=== PATIENT | male | born 1960 | race Caucasian/White ===

== ENCOUNTER 2024-03-15 04:59 | Inpatient (IN) | payer OTHER, SELFPAY ==
[2024-03-09 08:35] VITALS: BMI 34.3
[2024-03-09 09:40] LABS: Urine Albumin Trace (Neg - Trace); Urine Bilirubin Negative (Negative); Urine Character Clear (Clear); Urine Color Yellow; Urine Glucose Negative (Negative); Urine Ketone Negative (Negative); Urine Leukocyte Negative (Negative); Urine Nitrite Negative (Negative); Urine Occult Blood Negative (Negative); Urine Urobilinogen Negative (Neg - 1+)
[2024-03-09 09:50] LABS: INR 0.93; PT 12.4 Sec (11.4-14.6)
[2024-03-09 09:51] LABS: APTT 29.1 Sec (23.4-35.0)
[2024-03-09 10:06] LABS: % Basophils 1.1 % (0-2); % Eosinophils 4.4 % (0-6); % Immature Granulocytes 0.2 % (0-0.5); % Lymphocytes 27.9 % (20.5-51.1); % Monocytes 8.9 % (1.7-9.3); % Neutrophils 57.5 % (42.2-75.2); Absolute Basophils 0.1 10^3/uL (0-0.2); Absolute Eosinophils 0.3 10^3/uL (0-0.7); Absolute Lymphocytes 1.8 10^3/uL (1.2-3.4); Absolute Monocytes 0.6 10^3/uL (0.1-0.6); Absolute Neutrophils 3.8 10^3/uL (1.4-6.5); Hematocrit 42.7 % (39.0-52.0); Mean Corp Hgb Conc. 35.1 g/dL (33.0-37.0); Mean Corpuscular Hgb 29.8 pg (27.0-31.0); Mean Corpuscular Volume 84.9 fL (80.0-94.0); Mean Platelet Volume 11.4 fL (7.4-10.4); Nucleated Red Blood Cells % 0 % (-); Platelet Count 249 10^3/uL (130-400); Red Blood Cell Count 5.03 10^6/uL (4.70-6.10); Red Cell Dist. Width 12.8 % (11.5-14.5); White Blood Cell Count 6.6 10^3/uL (4.8-10.8)
[2024-03-09 11:28] LABS: Glycohemoglobin (HgbA1c) 6.4 % (4.0-5.6)
[2024-03-09 11:29] LABS: ALT (SGPT) 28 U/L (0-50); AST (SGOT) 24 U/L (17-59); Albumin 4.3 g/dl (3.5-5.0); Alkaline Phosphatase 54 U/L (38-126); Blood Urea Nitrogen 15 mg/dl (9-20); Calcium 9.2 mg/dl (8.4-10.2); Carbon Dioxide 23 mmol/L (22-30); Chloride 107 mmol/L (98-107); Direct Bilirubin 0.1 mg/dl (0.0-0.4); Estimated Creatinine Clearance 107 ml/min; Glucose 142 mg/dl (70-99); Sodium 143 mmol/L (135-145); Total Bilirubin 0.6 mg/dl (0.2-1.3); Total Protein 7.1 g/dl (6.3-8.2); eGFR > 60.00
--- NOTE | 2024-03-09 14:07 | CM ---
Met with Mr. Alarcon in [facility]. He states prior to admission he resides alone in a two story home with two steps to enter. His main suite is on the first floor. He has a water bed. He states he has a bedroom on the second floor he can use if
needed. He states prior to admission he was independent with ambulation and adls. He states he does not have any DME in the home. He states he has a prescription plan. He states he call call on his neighbors if he will need anything. The
discharge plan is to return home with a home visit by the Transitional Care Nurse when medically stable.
We reviewed pre-op and post-op routines. We reviewed the shower instructions. He has the soap, written instructions and the Cardiothoracic Surgery Educational Booklet. We reviewed restrictions including sternal precautions and driving
restrictions. We discussed a home visit by the Transitional Care Nurse. He is agreeable to a home visit. The plan is for CABG on Sunday, March 182023
[2024-03-15] VITALS (16 sets, daily range): BP systolic 86–145; BP diastolic 59–85; BMI 33.5
[2024-03-15] MEDS: XANAX 0.25 MG PO (05:44)
[2024-03-15] MEDS: PROTONIX 40 MG PO (05:45)
[2024-03-15] MEDS: MAGNESIUM OXIDE 500 MG PO (05:45)
[2024-03-15] MEDS: LOPRESSOR 25 MG PO (05:46)
[2024-03-15] MEDS: BACTROBAN 2% OINTMENT 1 APPLIC NASAL ×2 (05:47→19:59)
[2024-03-15 07:14] LABS: ACT+ - POC 98 Seconds (82-134)
--- NOTE | 2024-03-15 07:14 | W.CVOR.SURPR ---
CVOR Surgeon Immed Pre Op
-
I have examined this patient prior to performance of the scheduled procedure.
The patient's condition is unchanged from the time of the dictated/written History and
Physical and the patient is able to undergo the scheduled procedure.
CABG x 3 (multi arterial) with sternal fixation
He also requested that a mole along his midline incision be removed
[2024-03-15 07:53] LABS: Urine Albumin Trace (Neg - Trace); Urine Bilirubin Negative (Negative); Urine Character Clear (Clear); Urine Color Yellow; Urine Glucose Negative (Negative); Urine Ketone Negative (Negative); Urine Leukocyte Negative (Negative); Urine Nitrite Negative (Negative); Urine Occult Blood Trace (Negative); Urine Specific Gravity 1.025 (<1.030); Urine Urobilinogen Negative (Neg - 1+)
[2024-03-15 07:56] LABS: Urine Red Blood Cell 0-2 /HPF (0-2); Urine White Cell 0-2 /HPF (0-5)
[2024-03-15 09:57] LABS: ACT+ - POC 635 Seconds (82-134)
[2024-03-15 10:15] LABS: B.E. - POC -1.7 mmol/L; Glucose - POC 162 mg/dl (70-99); HCO3 - POC 24 mmol/L (21-28); Hematocrit - POC 39 % PCV (42-52); Hemodilution- POC Yes; Hemoglobin Calculated - POC 13.3; Ionized Calcium - POC 1.16 mmol/L (1.15-1.33); O2 Saturation %Calculated-POC 99.9 % (94-98); PCO2 - POC 44 mmHg (35-48); PO2 - POC 301 mmHg (83-108); POC Comment PRE; Potassium - POC 3.4 mmol/L (3.5-5.1); Sodium - POC 144 mmol/L (136-145); pH - POC 7.35 (7.35-7.45)
[2024-03-15 10:28] LABS: ACT+ - POC 724 Seconds (82-134)
[2024-03-15 10:46] LABS: B.E. - POC 1.6 mmol/L; Glucose - POC 160 mg/dl (70-99); HCO3 - POC 27 mmol/L (21-28); Hematocrit - POC 31 % PCV (42-52); Hemodilution- POC Yes; Hemoglobin Calculated - POC 10.7; Ionized Calcium - POC 1.04 mmol/L (1.15-1.33); O2 Saturation %Calculated-POC 99.9 % (94-98); PCO2 - POC 42 mmHg (35-48); PO2 - POC 299 mmHg (83-108); POC Comment CPB; Potassium - POC 4.3 mmol/L (3.5-5.1); Sodium - POC 142 mmol/L (136-145); pH - POC 7.41 (7.35-7.45)
[2024-03-15 10:57] LABS: ACT+ - POC 567 Seconds (82-134)
[2024-03-15 10:57] LABS: B.E. - POC -0.2 mmol/L; Glucose - POC 202 mg/dl (70-99); HCO3 - POC 25 mmol/L (21-28); Hematocrit - POC 37 % PCV (42-52); Hemodilution- POC Yes; Hemoglobin Calculated - POC 12.7; Ionized Calcium - POC 1.09 mmol/L (1.15-1.33); O2 Saturation %Calculated-POC 99.9 % (94-98); PCO2 - POC 39 mmHg (35-48); PO2 - POC 252 mmHg (83-108); POC Comment CPB; Potassium - POC 4.5 mmol/L (3.5-5.1); Sodium - POC 142 mmol/L (136-145)
[2024-03-15 11:09] LABS: ACT+ - POC 622 Seconds (82-134)
[2024-03-15 11:30] LABS: B.E. - POC -0.8 mmol/L; Glucose - POC 192 mg/dl (70-99); HCO3 - POC 24 mmol/L (21-28); Hematocrit - POC 37 % PCV (42-52); Hemodilution- POC Yes; Hemoglobin Calculated - POC 12.5; Ionized Calcium - POC 1.07 mmol/L (1.15-1.33); PCO2 - POC 37 mmHg (35-48); PO2 - POC 417 mmHg (83-108); POC Comment WARM; Potassium - POC 3.9 mmol/L (3.5-5.1); Sodium - POC 143 mmol/L (136-145); pH - POC 7.42 (7.35-7.45)
[2024-03-15 11:34] LABS: ACT+ - POC 126 Seconds (82-134)
[2024-03-15 11:45] LABS: B.E. - POC -3.5 mmol/L; Glucose - POC 136 mg/dl (70-99); HCO3 - POC 23 mmol/L (21-28); Hematocrit - POC 34 % PCV (42-52); Hemodilution- POC Yes; Hemoglobin Calculated - POC 11.6; Ionized Calcium - POC 1.31 mmol/L (1.15-1.33); O2 Saturation %Calculated-POC 98.4 % (94-98); PCO2 - POC 46 mmHg (35-48); PO2 - POC 125 mmHg (83-108); POC Comment POST; Potassium - POC 3.5 mmol/L (3.5-5.1); Sodium - POC 145 mmol/L (136-145); pH - POC 7.31 (7.35-7.45)
--- NOTE | 2024-03-15 11:49 | CM ---
Chart reviewed. Patient is in the OR today. Patient is independent of ADLS, lives alone in a 2 STH, with a waterbed, 2 NORI, 0 DME. Patient said he has neighbors that will help. Plan is for the patient to return home with CT Transitional RN.
--- NOTE | 2024-03-15 12:12 | W.PN.CT.SURG ---
CT Surgery Operative Note
-
CARDIAC SURGERY OPERATIVE REPORT
Preoperative Diagnosis: Multivessel Coronary Artery Disease with occluded LAD with collateralization
Postoperative Diagnosis: Same
Procedure(s) Performed:
1. Standard sternotomy with aortic and right atrial cannulation
2. Coronary artery bypass grafting x 3 (In situ LYNCH to LAD, Ao to left radial to large diagonal, Ao to RSVG to RPDA)
3. Endoscopic left radial artery harvest and endoscopic vein harvesting of right lower extremity
4. Placement of temporary ventricular pacing wires
5. Transesophageal echocardiography
6. Removal of skin lesion with primary closure
7. Rigid sternal fixation with 3 gold box plate
Date of Surgery: 03/15/24
Comorbidities:
1. Multivessel coronary disease with chronic total occlusion of the LAD with right to left collateralization
2. Hypertension
3. Hyperlipidemia
4. SEBASTIAN
5. Morbidly obese with a BMI of greater than 30
6. Diabetes type 1
7. Gout
Attending Surgeon: Steve Farfan MD, MS
Assistants: Rosio Koenig PA-C (present and necessary to first leveler, endoscopic vein harvest, retraction, suction, exposure, suture management, and wound closure under my direction), Steve Ambrocio PA-C (endoscopic left radial artery harvest)
Anesthesiology: Andreas Smith MD and Maru Harris CRNA
Scrub and Circulating RNs: Raleigh Coates RN, Joy Templeton RN
Archeologist: Rosio Welsh CCP
Anesthesia: GETA
EBL: per perfusion records
Products: None
CPB Time: 75 minutes
Aortic Cross Clamp Time: 64 minutes
Indication(s) for Procedures: This is a 64-year-old male who was found to have multivessel coronary disease. He has a chronic total occlusion of the proximal LAD with a large diagonal system that has a tubular stenosis of the ostial proximal
portion. Given his young age, diabetic status and multivessel involvement, he was offered surgical revascularization. He accepted those risks and so we proceeded
Conduit(s) Quality:
LYNCH - Excellent / Skeletonized
RSVG - Excellent / uniform with minimal varicosities
L radial artery - excellent, no areas of dissection
Target(s) Quality:
RPDA - Excellent/ Mean flow of 40-50 on test dose of antegrade at a pressure of 80mmHg, flowprobe with a mean flow in the teens with a PI slightly higher in the 5-6 range
Diag - Excellent / Good visual flow on test dose of antegrade, flowed at least 50cc/min at a pressure of 80mmHg, Flowprobe assessment with a mean flow of 20s with a PI of <4
LAD - Excellent / Excellent visual flow in the LAD territory, Mean flow in the high 20s with a PI of <4
Implants:
3 box gold plates with 16mm screws x 12
Specimen:
Skin lesion sent for pathology
Findings: His left ventricular ejection fraction preoperatively is preserved with an EF of approximately 60% with no significant regional wall motion abnormalities. Following surgery his EF remained the same at 60% with no new regional wall motion
abnormality. The LYNCH was harvested in a skeletonized fashion. Following bypass grafting, test dose cardioplegia was given down each distal and confirmed patency and hemostasis. Each distal was probed both proximally and distally to confirm disease
and patency, respectively. Flow probe was used to test each bypass graft which had acceptable flow and pulsatility indices. At the patient's request he had a skin lesion that we wanted to be removed at time of surgery. This was resected in an
elliptical form and sent off for pathological assessment. It was close primarily.
Description of Procedure: The patient was taken to the operating room. Their identity and procedure to be performed were verified and they were positioned supine on the operating table. Induction via general anesthesia with endotracheal intubation
was performed and central venous access and arterial monitoring were inserted. A preoperative transesophageal echocardiogram was performed to assess cardiac function and valvular function. The patient was then prepped and draped from chin to feet in
a sterile fashion. A preoperative time-out was performed with all members of the team present. A midline chest incision was performed along with median sternotomy. Simultaneous endoscopic access of the right lower extremity for saphenous vein
harvest was obtained along with administration of an initial 5,000 units of IV heparin. Simultaneous harvest of the left radial artery and endoscopic fashion was performed. A RulTract sternal retractor was positioned to exposure the left internal
mammary bed. The mammary was harvested and found to have good flow. A bulldog clamp was applied to the distal end of the mammary after dividing it. It was wrapped in a papaverine soaked RayTec and replaced back into the left hemithorax. The RulTract
was exchanged for a median sternal retractor. The innominate vein was isolated. Full heparinization was given (a total of 70,000 units). We created a pericardial well. The aortic cannulation site was chosen where it was soft, pliable, and free of
calcium. Cannulation was performed with an arterial cannula in the ascending aorta and a triple-stage venous cannula through the right atrial appendage. The arterial cannula line had an appropriate bounce and correlating pressures with test dosing.
Next, a root vent/antegrade cannula was inserted into the ascending aorta. The ACT was confirmed to be over 400 and retrograde autologous priming was performed before commencing cardiopulmonary bypass. The pulmonary artery was away from
the aorta to facilitate a clamp site. The aortic cross-clamp was placed after decreasing the flow on the bypass and mean arterial pressure. A total of 1L initial dose of antegrade Del-Nido cardioplegia solution was given and planned for re-dosing
every 75 minutes as necessary. There was rapid electro-mechanical arrest of the heart at 280 cc of cardioplegia. The left ventricle was observed for distention on echocardiogram and manual palpation. Cold slush was placed into a sponge and topically
on the RV while we systemically cooled to 34 degrees centigrade.
I positioned the heart to expose the distal right coronary at the posterior descending artery. A [place] ak blade was used to expose the coronary and perform the arteriotomy. Coronary Lemus scissors were used to enlarge the incision. The saphenous vein
was trimmed and beveled to an appropriate size. The distal anastomosis was performed using 7-0 prolene in an end-to-side fashion. Antegrade cardioplegia was administered into the graft. Appropriate hemostasis and flow were confirmed. The graft was
measured for length to the aorta and cut. A suitable site on the large diagonal was chosen. We dissected and prepared the distal target in a similar fashion. The radial artery graft was beveled accordingly. An end-to-side anastomosis was created
with a 7-0 prolene. Antegrade cardioplegia was administered into the graft with the aid of an 18-gauge Angiocath. Appropriate hemostasis and flow were confirmed. The graft was measured for length to the aorta and cut. A suitable target on the
mid/distal left anterior descending was identified. We dissected and prepared the distal target in a similar fashion. We retrieved the LYNCH from the chest and created a pericardial opening while being cognizant of the phrenic nerve to facilitate the
course of the mammary. The distal end of the mammary was prepped and beveled to size. We verified orientation and length of the JENNIFER and found brisk flow. An end-to-side anastomosis was created with a 7-0 prolene. We temporarily released the bulldog
clamp on the mammary to inspect flow. Perfusion to the LAD territory was visualized and hemostasis was confirmed. The bull clamp was replaced on the mammary. The heart was filled and the root was distended with antegrade cardioplegia to make final
assessment of graft length and orientation. We created 2 aortotomies using a #11 blade then a 4.0mm aortic punch. The proximal anastomoses were created in an end-to-side fashion using 6-0 prolene. At the the same time, we re-warmed to 36.5 degrees
centigrade. The bulldog clamp was removed from the mammary. Temporary bipolar ventricular pacing wires were placed on the base of the right ventricle. The patient was placed in a Trendelenburg position and flows on bypass were lowered. The aortic
cross clamp was removed and flows were slowly brought back up. All bypass grafts were inspected and were free from kinking or twisting. The distal and proximal anastomoses appeared hemostatic. Once transesophageal echocardiography appeared
satisfactory for de-airing, the flows were temporarily lowered for root vent removal. After verifying acceptable parameters, we initiated weaning from cardiopulmonary bypass. Once we were off cardiopulmonary bypass, the venous cannula was clamped
and removed. A test dose of protamine was administered and the patient was monitored for any adverse reaction before resuming protamine. Once half of the protamine dose was delivered, pump suckers were turned off and the systolic blood pressure was
lowered for aortic decannulation. The aortic cannula was removed and pursestrings were tied down. All cannulation sites were oversewn with a 4-0 prolene. The mammary bed was inspected and hemostasis was confirmed. Once the mediastinum was
hemostatic, 19Fr Miko drain was placed in the left pleural cavity and two 24Fr Miko drains were placed within the pericardium. The sternum was approximated with 4 #7 single and 3 #8 double stainless steel wires. Additional plates were placed at
the manubrium, manubrial sternal junction, and lower portion of the sternal body. The small skin lesion was resected in an elliptical fashion, and measured approximately 4 mm x 5 mm. The skin wound was then cauterized for hemostasis and 2 vertical
mattress sutures were placed to reapproximate the skin primarily. Fascia was approximated with #1 vicryl suture. The subcutaneous, dermis and epidermis were closed in layers in a running fashion. The skin wound was cleansed and dressed.
All instrument, sponge, and needle counts were confirmed to be correct x 2 at the end of the operation. The patient was transferred to the cardiac intensive care unit in critical but stable condition.
I, Dr. Steve Farfan, was present, scrubbed for, and performed all critical elements of this procedure.
Steve Farfan MD, MS
Cardiothoracic Surgeon
[facility]
This operative dictation was created using the [employer] dictation system. Please excuse any grammatical, typographical, or 'sound alike' errors
[2024-03-15 12:36] LABS: Glucose - Point of Care 127 mg/dl (70-99)
--- NOTE | 2024-03-15 12:39 | CON.INTV ---
Consultation
Consultation Request
Date/Time Consultation Requested: 03/15
Date/Time Consultation Performed: 03/15
Reason for Consultation: Critical care
Medical History
-
History of Present Illness:
History obtained from the chart as patient is currently intubated and sedated. 64-year-old male with history hypertension, hyperlipidemia, type 1 diabetes who was noted to have abnormal stress test, which identified hypokinesis in the inferior wall
at peak exercise. He is followed regularly by cardiology and was noted to have increased shortness of breath and abnormal EKG. Cardiac catheterization 02/26/2024 revealed multivessel coronary disease. Patient is now status post CAB 03/15/2024.
We are asked to help from critical care standpoint
Patient is currently on norepinephrine, Precedex, insulin drip. Chest tube site intact, minimal drainage. Currently on volume-cycled ventilation, down to 40%
.
PMH: Hypertension, hyperlipidemia, history of sleep apnea, type 1 diabetes, gout, coronary disease per catheterization. History of appendectomy, vasectomy, bilateral bunionectomy
Past Medical History
Past Medical History: None (See above)
Past Surgical History: None (See above)
Social History
Tobacco: Other (Occasional cigar)
Alcohol: Occasional
Drug: None
Personal: Single
Living: Alone
Employment: Employed (Clin Nurse, does heavy lifting)
Family History
Family History: Other (Father is alive at age 93. Mother at age 76. Brother with diabetes, sudden in the fifth decade. Another brother alive and well. 1 daughter healthy)
Allergies / Home Medications
Allergies
Allergy/AdvReac Type Severity Reaction Status Date / Time
No Known Allergies Allergy Verified 03/08/24 09:57
Home Medications
�Medication �Instructions �Recorded �Confirmed �Last Taken �Type
Vitamin D3 1 cap PO DAILY 03/08/24 03/15/24 03/12/24 History
aspirin 81 mg chewable tablet 81 mg PO DAILY 03/08/24 03/15/24 03/12/24 History
glipizide 10 mg tablet 10 mg PO BID 03/08/24 03/15/24 03/12/24 History
insulin glargine U-300 conc 300 34 unit SC HS 03/08/24 03/15/24 03/12/24 History
unit/mL (1.5 mL) subcutaneous pen
(Touchristinao SoloStar U-300 Insulin)
irbesartan 150 mg tablet 150 mg PO DAILY 03/08/24 03/15/24 03/12/24 History
levothyroxine 88 mcg tablet 88 mcg PO DAILY 03/08/24 03/15/24 03/05/24 History
metformin 500 mg tablet 500 mg PO BID 03/08/24 03/15/24 03/12/24 History
multivitamin 1 tab PO DAILY 03/08/24 03/15/24 03/12/24 History
rosuvastatin 5 mg tablet 5 mg PO DAILY 03/08/24 03/15/24 03/12/24 History
semaglutide 0.25 mg or 0.5 mg (2 0.5 mg SC QWEEK 03/08/24 03/15/24 03/05/24 History
mg/1.5 mL) subcutaneous pen
injector (Ozempic)
Review of Systems
-
Unable to Obtain full review of systems at this time due to: Patient Intubation
All other systems: Negative unless noted
Vitals / Labs / Diagnostic Testing
Vital Signs
Temp Pulse Resp BP Pulse Ox
97.6 F 61 14 86/59 96
03/15/24 12:34 03/15/24 12:31 03/15/24 12:34 03/15/24 12:31 03/15/24 12:34
Diagnostic Testing:
Physical Exam
-
HEENT: Normocephalic, Other (Right upper extremity A-line, right IJ. Right lower extremity bandage, left upper extremity bandage) and Other (ET tube)
Cardiovascular: S1/S2, Regular Rhythm, Murmur (n) and Rub (n)
Respiratory: Wheeze (n), Rales (n), Rhonchi (n) and Non-Labored Respirations
GI: Soft and Non Distended (Obese)
Neurology: Other (Sedated)
Skin: Other (No rash) and Other (Sternal incision intact)
General: Comfortable
Assessment
-
64-year-old male with history of hypertension, diabetes, sleep apnea not treated, presents with shortness of breath found to have abnormal EKG,, abnormal stress test. Catheterization revealed multivessel disease. He is status post CAB x 3 on
03/15/2024 (left upper extremity radial, right lower extremity venous harvest)
S/p CAB x 3, 03/15/24
Multivessel coronary disease
Abnormal stress test, progressive shortness of breath
Normal EF, with hypokinesis of inferior wall
Conditions present prior to admission
Hypertension/hyperlipidemia
Type 1 diabetes
Sleep apnea, untreated
Details unclear
History of gout
Family history of coronary disease (father)
Occasional cigar use
Moving forward
At this time, patient is critically ill but stable
Remains on volume-cycled ventilation, FiO2 weaned down to 40%
Airway pressures adequate
Remains on pressors, Precedex, insulin drip
Chest tube output minimal
EKG with sinus rhythm
Chest x-ray pending
Moving forward
Continue with management per CT surgery
Follow hemoglobin, blood sugars
Follow urine output
Preoperative CT chest 03/10/2024 reviewed. No significant parenchymal pulmonary abnormality
Wean pressors as able
Anticipate extubation later today
History of sleep apnea noted
Preoperative serum bicarbonate normal
DVT prophylaxis, GI prophylaxis per CT surgery protocol
Reviewed with critical care nursing
We will follow
TCCT 31 min
[2024-03-15 12:51] LABS: B.E. -2.4 mmol/L; HCO3 23.7 mmol/L (21-28); Ionized Calcium 1.21 mMOL/L (1.15-1.33); O2 Saturation % 99.4 % (94-98); PCO2 45 mmHg (35-48); PO2 114 mmHg (83-108); Potassium 3.7 mMOL/L (3.5-5.1); Sodium 138 mMOL/L (136-145); pH 7.33 (7.35-7.45)
[2024-03-15 12:58] LABS: Hematocrit 33.7 % (39.0-52.0); Hemoglobin 11.6 g/dL (13.0-18.0); Platelet Count 193 10^3/uL (130-400)
[2024-03-15 12:59] LABS: INR 1.22; Mixed Venous O2 Saturation 89.5 %; PT 15.2 Sec (11.4-14.6)
[2024-03-15 13:00] LABS: APTT 28.1 Sec (23.4-35.0)
[2024-03-15] MEDS: NSS 500 IV (13:03)
[2024-03-15] MEDS: KCL 50 IV ×2 (13:03→14:07)
[2024-03-15] MEDS: NOVOLOG FLEXPEN SC ×2 (13:05→15:36)
[2024-03-15] MEDS: THERAGRAN PO (13:05)
[2024-03-15] MEDS: TYLENOL PO (13:06)
[2024-03-15] MEDS: NEURONTIN PO ×2 (13:06→15:20)
[2024-03-15] MEDS: NORVASC PO (13:06)
[2024-03-15 13:11] LABS: Blood Urea Nitrogen 14 mg/dl (9-20); Estimated Creatinine Clearance 97 ml/min; Glucose 126 mg/dl (70-99); Magnesium 3.2 mg/dl (1.6-2.3)
[2024-03-15 13:22] LABS: Glucose - Point of Care 184 mg/dl (70-99)
--- NOTE | 2024-03-15 13:28 | PTCARENOTE ---
Patient received from CVOR at 1225; Sedated and intubated; NSR rhythm on monitor; VSS; Friction rub present; Epicardial V-wire present with temporary pacermaker turned off; Left ulnar, right radial, and DP pulses present; Lungs diminished at bases;
ETT size 8 positioned and secured at 24 cm right lip; Ventilator settings SIMV 550/14/5/5 FiO2 60%; CTx3 to -20 cm wall suction draining bloody drainage - no air leak, tidaling, or crepitus noted; Hypoactive BS; Calderón catheter in place draining
clear, yellow urine; Sternal incision approximated and CDI, right midsternal puncture approximated and CDI, Right groin puncture site approximated and CDI, left radial graft site wrapped in HAL wrap and CDI; right leg wrapped in HAL wrap and CDI;
A-line in right radial artery and SLIC present in right IJ Cordis - all lines zeroed and level; PIVx1 #18 Right Wrist; Levo/insulin/precedex/Cardene infusing - see nursing flowsheets for further details; K repleted x2; See nursing documentation for
further details.
[2024-03-15 14:05] LABS: Glucose - Point of Care 162 mg/dl (70-99)
--- NOTE | 2024-03-15 14:09 | PTCARENOTE ---
RT in room and pt placed on CPAP trial at 1405. ABG's due at 1435
[2024-03-15 14:43] LABS: B.E. -2.2 mmol/L; HCO3 23.7 mmol/L (21-28); Ionized Calcium 1.21 mMOL/L (1.15-1.33); O2 Saturation % 98.5 % (94-98); PCO2 44 mmHg (35-48); PO2 86 mmHg (83-108); Potassium 4.5 mMOL/L (3.5-5.1); Sodium 137 mMOL/L (136-145); pH 7.34 (7.35-7.45)
--- NOTE | 2024-03-15 14:47 | W.PN.CD ---
Addendum entered and electronically signed by Delgado Villanueva MD 03/15/24 18:05:
65 yo male with PMH of HTN, DM, CAD now admitted s/p CABG today. He has been extubated. He reports fatigue. Exam with RRR, no murmurs, no edema. EKG: NSR, inferior infarct. PIPE: EF 55-60%.
ASA, Plavix, high intensity statin.
Original Note:
Today's Communication / Plan
-
Increase rosuvastatin
Follow telemetry
Impression / Plan
-
BACKGROUND: 65M with hypertension, hyperlipidemia, diabetes mellitus, and hypothyroidism who presented to Dr. Randle with fatigue and shortness of breath with steps. He had a stress echocardiogram which demonstrated hypokinesis of the distal
inferior wall and distal septum at peak exercise. Cardiac catheterization was performed and CABG was recommended.
Compensation Associate: Dr. Randle
PLAN:
CAD s/p CABG x 3 (In situ LYNCH to LAD, Ao to left radial to large diagonal, Ao to RSVG to RPDA) by Dr. Farfan 03/15/2024
-Pre-LVEF 60% without wall motion abnormality, post unchanged
-EKG sinus rhythm with prolonged QT, EKG in a.m.
-Postoperative management per CT surgery
-Follow telemetry
Hypertension, irbesartan has been on hold since 03/12/2024
Insulin-dependent diabetes mellitus, preoperative HbA1c 6.4%
Dyslipidemia, on rosuvastatin 5 mg, this should be increased to at least 20 mg, fasting lipid panel in am
SEBASTIAN
Obesity, BMI 33, he would benefit from weight loss
SUBJECTIVE:
Extubated. Resting comfortably. Operative notes reviewed.
DATA:
Transthoracic echocardiogram, 01/21/2024:
1. Normal chamber sizes.
2. Normal valvular structures.
3. Normal left and right ventricular systolic function.
4. Grade 1 diastolic dysfunction.
Physical Exam
Vital Signs/Labs
Vital Signs
Temp Pulse Resp BP Pulse Ox
97.2 F 66 12 97/67 97
03/15/24 14:00 03/15/24 14:10 03/15/24 14:10 03/15/24 13:00 03/15/24 14:10
03/14/24 03/15/24 03/16/24
06:59 06:59 06:59
Actual Weight 121.7 kg
03/15/24 12:34
PT 15.2 Sec (11.4-14.6) H 03/15/24 12:34
INR 1.22 03/15/24 12:34
APTT 28.1 Sec (23.4-35.0) 03/15/24 12:34
Magnesium 3.2 mg/dl (1.6-2.3) H 03/15/24 12:34
Physical Exam
Constitutional: No acute distress and Comfortable
EENT: Anicteric and Moist mucous membranes
Cardiovascular: Rhythm & rate is regular and Pedal edema is absent
Respiratory: Respiratory effort normal
GI: Soft, Distention absent, Flat, Non tender and Normal bowel sounds
Neuro/Psych: Other (follows commands)
Other: Skin (warm and dry)
Data Reviewed
-
Date of Service: March 15, 2024
--- NOTE | 2024-03-15 14:52 | PTCARENOTE ---
ABG's reviewed with CVPA Chuyita Gifford; RT at bedside; Patient extubated at 1450 and placed on 6L NC.
--- NOTE | 2024-03-15 14:54 | RESPNOTE ---
Extubated to 6 liter NC at this time without incident 97% HR 71, IS done with RN 750-1000Ml
[2024-03-15 15:01] LABS: Glucose - Point of Care 142 mg/dl (70-99)
[2024-03-15] MEDS: PACERONE PO (15:20)
[2024-03-15 16:04] LABS: Glucose - Point of Care 178 mg/dl (70-99)
[2024-03-15 17:05] LABS: Glucose - Point of Care 128 mg/dl (70-99)
[2024-03-15] MEDS: LOW STRENGTH ASPIRIN 81 MG PO (17:11)
[2024-03-15 17:22] LABS: Hematocrit 36.5 % (39.0-52.0); Hemoglobin 12.7 g/dL (13.0-18.0); Platelet Count 212 10^3/uL (130-400)
--- NOTE | 2024-03-15 17:33 | PTCARENOTE ---
Patient SpO2 initially dropped to 80's after extubation a few times when patient was in deep sleep - CPAP ordered by CVPA Chuyita Tierney; When RT arrived, patient no longer dropping into 80's during deep sleep, CVPA notified and patient remains on NC
oxygen; Patient now 94-98% on 4L NC.
[2024-03-15 19:01] LABS: Glucose - Point of Care 140 mg/dl (70-99)
[2024-03-15] MEDS: SENOKOT-S 1 TABLET PO (19:56)
[2024-03-15] MEDS: ANCEF 5 IV (19:58)
[2024-03-15 21:05] LABS: Glucose - Point of Care 143 mg/dl (70-99)
[2024-03-15 22:11] LABS: Glucose - Point of Care 128 mg/dl (70-99)
[2024-03-15] MEDS: PACERONE 200 MG PO (22:18)
[2024-03-15] MEDS: TYLENOL 1000 MG PO (22:18)
[2024-03-15] MEDS: NEURONTIN 100 MG PO (22:18)
--- NOTE | 2024-03-15 22:23 | PTCARENOTE ---
Assumed care of patient at 1900. Patient found resting in bed at time of assessment. Patient is AOx4, follows commands appropriately, moves all extremities. Drowsy on assessment. Lung sounds are diminished in the bases, saO2 98% on 2L via NC, CTx3 L
pleural to one atrium, 2xmeds to one atrium draining red sanguineous. Heart sounds are audible, there is a rub present on auscultation, patient is SR on the monitor. Patient has a normal palpable L ulnar pulses, palpable R radial, and normal
palpable pedal pulses. No edema is present. Patient has a V wire present but temporary PM is off. Patient has round obese abdomen with hypoactive BS and a peters is in place draining clear yellow urine. Patient has a sternal incision approx with surg
adhesive BALLET MASTER/MISTRESS, a small sternal puncture approx with surg adhesive BALLET MASTER/MISTRESS, a R groin puncture approx with surg adhesive BALLET MASTER/MISTRESS, a L radial incision approx with surg adhesive BALLET MASTER/MISTRESS and HAL wrapped, and RLE incision approx with surg adhesive BALLET MASTER/MISTRESS and HAL
wrapped. Patient has R IJ cordis with slic, R wrist PIV, and R radial A line. Patient has the following gtts: Levo@3, Cardene@1, Insulin gtt. Vital signs as follows: T-99.4 P-79 BP- 131/67 MAP-85 CVP-8. No c/o pain at this time.
[2024-03-15] MEDS: DILAUDID 0.25 MG IV (22:46)
[2024-03-15 23:07] LABS: Glucose - Point of Care 121 mg/dl (70-99)
--- NOTE | 2024-03-15 23:53 | RESPNOTE ---
Pt has a CPAP order and machine stand-by in room. Pt refused to wear machine for HS.
[2024-03-16] VITALS (27 sets, daily range): BP systolic 106–157; BP diastolic 67–86; PULSE 70; O2SAT 96–98; BMI 33.5
--- NOTE | 2024-03-16 | PTCARENOTE ---
Patient reassessed. Patient with elevated BP Levo turned off titrating cardene per protocol. Patient desatting while asleep O2 increased to 4L via NC saO2 93-93%. Patient given dilaudid 0.25x1 for pain. Remains SR on the monitor. All other VSS.
[2024-03-16 00:11] LABS: Glucose - Point of Care 101 mg/dl (70-99)
[2024-03-16] MEDS: ROXICODONE 5 MG PO ×3 (00:56→19:34)
[2024-03-16 01:07] LABS: Glucose - Point of Care 108 mg/dl (70-99)
[2024-03-16 03:17] LABS: Glucose - Point of Care 116 mg/dl (70-99)
[2024-03-16 03:31] LABS: Hematocrit 35.6 % (39.0-52.0); Hemoglobin 12.4 g/dL (13.0-18.0); Mean Corp Hgb Conc. 34.8 g/dL (33.0-37.0); Mean Corpuscular Hgb 28.8 pg (27.0-31.0); Mean Corpuscular Volume 82.8 fL (80.0-94.0); Mean Platelet Volume 10.7 fL (7.4-10.4); Platelet Count 200 10^3/uL (130-400); Red Cell Dist. Width 13.1 % (11.5-14.5); White Blood Cell Count 13.9 10^3/uL (4.8-10.8)
[2024-03-16] MEDS: CARDENE 200 IV (03:44)
[2024-03-16 03:51] LABS: Blood Urea Nitrogen 15 mg/dl (9-20); Calcium 8.3 mg/dl (8.4-10.2); Chloride 109 mmol/L (98-107); Estimated Creatinine Clearance 97 ml/min; Glucose 120 mg/dl (70-99); HDL Cholesterol 36 mg/dl; LDL Cholesterol, Calculated 53 mg/dl; Magnesium 2.2 mg/dl (1.6-2.3); Potassium 4.3 mmol/L (3.5-5.1); Sodium 143 mmol/L (135-145); Total Cholesterol 102 mg/dl (50-199); Triglyceride 69 mg/dl (10-149); Very Low Density Lipoprotein 13 mg/dl (0-30); eGFR > 60.00
[2024-03-16 03:59] LABS: Carbon Dioxide 22 mmol/L (22-30)
--- NOTE | 2024-03-16 04:21 | W.PN.CT ---
Documented by User: Antonio Heard PA-C 03/16/24 05:49
Today's Communication / Plan
-
Plan:
-No major issues overnight. Hemodynamically and neurologically intact
-Successfully extubated on 03/15/24 @ 1450
-Weaned of Levophed gtt overnight, off Cardene gtt @ 0400. Remains on insulin gtt per protocol
-No swan, MVO2 89.5 %, U/O since OR 1110 mL
-D/C'd a-line and [facility] today @ 0500
-D/C'd peters @ 0600
-Will transfer to [facility] tomorrow once of insulin gtt
-Monitor chest tube drainage: 2meds 110/175, Lpl 60/150
-Cont. current meds (ASA, Plavix, Amiodarone, Lopressor, Crestor, Synthroid)
-Norvasc added for radial graft patency
-Maintain cordis
-Maintain temporary PW (will pull in 1-2 days)
-Wean off of O2 as tolerated
-Encourage use of IS
-OOB into chair/Ambulate
Assessment / Plan
-
Assessment:
-S/P Sternotomy/CABG x 3 (In situ LYNCH to LAD, Ao to left radial to large diagonal, Ao to RSVG to RPDA)/Endoscopic left radial artery harvest and endoscopic vein harvesting of right lower extremity/Removal of skin lesion with primary closure/Rigid
sternal fixation with 3 gold box plate, by Dr Farfan, 03/15/24, pod#1
-Multivessel coronary disease with chronic total occlusion of the LAD with right to left collateralization
-Hypertension
-Hyperlipidemia
-T1DM (hgb A1C 6.4)
-Class 1 obesity (BMI 33.5)
-SEBASTIAN (does not use CPAP)
-Gout
-Hypothyroidism
-S/P bilateral bunionectomy
-S/P Vasectomy
-S/P Appendectomy
-Acute postop blood loss/Anemia (stable without blood transfusion)
-Acute postop atelectasis
-Acute postop hypovolemia with subsequent hypervolemia
Discussed patient care with: Cardiology, Nursing, Respiratory Therapy, Pharmacy and Care Team
Subjective
Procedure
S/P Sternotomy/CABG x 3 (In situ LYNCH to LAD, Ao to left radial to large diagonal, Ao to RSVG to RPDA)/Endoscopic left radial artery harvest and endoscopic vein harvesting of right lower extremity/Removal of skin lesion with primary closure/Rigid
sternal fixation with 3 gold box plate, by Dr Farfan, 03/15/24
-
Date of Service: March 16, 2024
Pt c/o incisional pain, otherwise feels well
Objective Data
-
Lab Results
03/16/24 03:22
03/16/24 03:22
PT 15.2 Sec (11.4-14.6) H 03/15/24 12:34
INR 1.22 03/15/24 12:34
APTT 28.1 Sec (23.4-35.0) 03/15/24 12:34
Vital Signs
Vital Signs
Temp Pulse Resp BP Pulse Ox
99.4 F 74 17 118/68 92
03/16/24 04:00 03/16/24 04:10 03/16/24 04:10 03/16/24 04:00 03/16/24 04:10
CT Intake/Output/Weight
03/15/24 03/15/24 03/16/24
06:59 18:59 06:59
Intake Total 409.1 / 808.7 399.6 / 808.7
Output Total 540 / 1340 800 / 1340
Balance -130.9 / -531.3 -400.4 / -531.3
SaO2: 93 (4L)
Physical Exam
-
General: Awake, Oriented and AOx3
Cardiovascular: Regular rate & rhythm, Rub (likely friction rub from chest tubes) and No Gallop
Respiratory: Decreased Breath Sounds (at bases, otherwise clear)
Sternum: Stable
Incision: Clean, Dry, Intact and Dressing Intact
Extremities: Other (+trace edema)
Data Reviewed
-
Lab Results: Results Reviewed
Medications: Active Meds Reviewed
Chest X-Ray: Report Reviewed and Image Reviewed
ECG: Report Reviewed and Image Reviewed

Documented by User: Rochelle Resendiz PA-C 03/16/24 08:38
Assessment / Plan
-
Assessment:
-S/P Sternotomy/CABG x 3 (In situ LYNCH to LAD, Ao to left radial to large diagonal, Ao to RSVG to RPDA)/Endoscopic left radial artery harvest and endoscopic vein harvesting of right lower extremity/Removal of skin lesion with primary closure/Rigid
sternal fixation with 3 gold box plate, by Dr Farfan, 03/15/24, pod#1
-Multivessel coronary disease with chronic total occlusion of the LAD with right to left collateralization
-Hypertension
-Hyperlipidemia
-T1DM (hgb A1C 6.4)
-Class 1 obesity (BMI 33.5)
-SEBASTIAN (does not use CPAP)
-Gout
-Hypothyroidism
-S/P bilateral bunionectomy
-S/P Vasectomy
-S/P Appendectomy
-Acute postop blood loss/Anemia (stable without blood transfusion)
-Acute postop atelectasis
-Acute postop hypovolemia with subsequent hypervolemia
-acute postop pulmonary insufficiency secondary to volume overload
--- NOTE | 2024-03-16 04:25 | PTCARENOTE ---
Patient reassessed. VSS. Rangel @5. Insulin gtt column 3. Remains SR on the monitor. AM labs obtained. AM hygiene care provided. EK obtained. Patient given Elysia 5 for pain. Patient stable.
[2024-03-16] MEDS: DILAUDID 0.5 MG IV (04:31)
[2024-03-16] MEDS: ANCEF 5 IV ×2 (04:32→12:41)
[2024-03-16 05:07] LABS: Hepatitis C Antibody Negative (Negative)
[2024-03-16] MEDS: TYLENOL 1000 MG PO ×3 (06:33→22:09)
[2024-03-16] MEDS: SYNTHROID 88 MCG PO (06:33)
--- NOTE | 2024-03-16 07:51 | W.PN.INTV ---
Today's Communication / Plan
Recommendations
Out of bed to chair
Chest tube management per surgery
Follow blood sugars, remains on insulin drip
Records suggest history of sleep apnea, patient denies. Follow clinically
Assessment
-
64-year-old male with history of hypertension, diabetes, sleep apnea not treated, presents with shortness of breath found to have abnormal EKG,, abnormal stress test. Catheterization revealed multivessel disease. He is status post CAB x 3 on
03/15/2024 (left upper extremity radial, right lower extremity venous harvest)
S/p CAB x 3, 03/15/24
Multivessel coronary disease
Abnormal stress test, progressive shortness of breath
Normal EF, with hypokinesis of inferior wall
Conditions present prior to admission
Hypertension/hyperlipidemia
Type 1 diabetes
Sleep apnea, untreated
Details unclear
History of gout
Family history of coronary disease (father)
Occasional cigar use
Moving forward
At this time, patient appears comfortable, sitting in chair without complaints
Extubated without difficulty
Weaned off norepinephrine overnight
Remains on insulin drip
Chest tube output minimal
Chest x-ray unremarkable
Moving forward
Continue with management per CT surgery
Follow hemoglobin, blood sugars, remains on insulin drip
Follow urine output
Preoperative CT chest 03/10/2024 reviewed. No significant parenchymal pulmonary abnormality
History of sleep apnea noted. Patient denies
Preoperative serum bicarbonate normal
Follow clinically
DVT prophylaxis, GI prophylaxis per CT surgery protocol
Reviewed with critical care nursing
We will continue to follow
Subjective Dataa
Subjective Data
Date of Service:
Date of Service: March 16, 2024
Subjective:
Patient sitting in chair, without complaints. Denies shortness of breath, nausea
Objective Data
Data Reviewed
Vital Signs / I&O / Oxygen:
Vital Signs
Temp Pulse Resp BP Pulse Ox
99.5 F 76 16 119/75 97
03/16/24 05:00 03/16/24 07:20 03/16/24 07:00 03/16/24 07:00 03/16/24 07:20
Intake and Output
03/15/24 03/16/24 03/17/24
06:59 06:59 06:59
Intake Total 870.7 / 884.7
Output Total 1470 / 1490
Balance -599.3 / -605.3 -6 / -6
SaO2 [CPAP/PSV] 98
SaO2 [SIMV] 94
SaO2 97
Nasal Cannula flow liters per 3
minute
Physical Exam
General: Comfortable
HEENT: Normocephalic and Anicteric
Cardiovascular: S1-S2, Regular Rhythm and Murmur (n)
Respiratory: Wheeze (n), Crackles (n), Rhonchi (n), Non-Labored Respirations and Chest Tube
GI: Soft and Non Distended
Neurology: Awake and Alert
Skin: Cyanosis (n) and Jaundice (n)
Labs/Micro/Reports
Lab Data
03/16/24 03:22
03/16/24 03:22
Laboratory Results
03/15/24 03/15/24
12:34 14:36
PT 15.2 H
INR 1.22
APTT 28.1
pH 7.33 L 7.34 L
pCO2 45 44
pO2 114 H 86
HCO3 23.7 23.7
O2 Delivery Level
--- NOTE | 2024-03-16 07:54 | W.PN.ANS.POP ---
Anesthesia Post Operative
- Anesthesia Post Op Note
Vital Signs Stable-See Nursing Note: Yes
Airway Patent: Yes
Adequate Pain Control: Yes
Change in Mental Status: No
Current Postoperative Nausea & Vomiting: No
Anesthesia Complications: No
General Anesthetic Recall: No
Unplanned Admission: No
Post Op Hydration Adequate: Yes
--- NOTE | 2024-03-16 08:15 | PTCARENOTE ---
Assumed care of patient at 0700. Pt is awake, alert, and oriented. Pt with complaints of pain at left radial incision. Pt remains SR with HR 70's. BP 120/74 MAP 89. Epicardial V wire in place, currently turned off. Pulse oximetry 95% on room air.
Mediastinal chest tubes x 2 and left pleural chest tube in place draining serosanguineous drainage, no sign of air leak or crepitus. Continued use of IS encouraged. Pt tolerating clear liquid diet. Pt is due to void. Midsternal incision approximated
and AGRONOMY TEACHER. Left radial incision approximated and AGRONOMY TEACHER. Right groin puncture approximated and KATERINA. Right leg incision with HAL wrap in place. Right IJ cordis in place with KVO. Pt currently OOB in chair.
[2024-03-16] MEDS: PROTONIX 40 MG PO (09:00)
[2024-03-16] MEDS: LOPRESSOR 12.5 MG PO ×3 (09:00→22:08)
[2024-03-16] MEDS: KCL 20 MEQ PO (09:00)
[2024-03-16] MEDS: NEURONTIN 100 MG PO ×3 (09:00→22:08)
[2024-03-16] MEDS: NORVASC 2.5 MG PO (09:00)
[2024-03-16] MEDS: LASIX 40 MG IV (09:00)
[2024-03-16] MEDS: PLAVIX 75 MG PO (09:00)
[2024-03-16] MEDS: SENOKOT-S 1 TABLET PO ×2 (09:00→19:34)
[2024-03-16] MEDS: LIDOCAINE 4% PATCH 1 PATCH TOPICAL ×2 (09:01→09:02)
[2024-03-16] MEDS: PACERONE 200 MG PO ×3 (09:01→22:08)
[2024-03-16] MEDS: MAGNESIUM OXIDE 500 MG PO ×2 (09:01→19:34)
[2024-03-16] MEDS: BACTROBAN 2% OINTMENT 1 APPLIC NASAL ×2 (09:01→19:33)
[2024-03-16] MEDS: CRESTOR 20 MG PO (09:01)
[2024-03-16] MEDS: LOW STRENGTH ASPIRIN 81 MG PO (09:01)
[2024-03-16] MEDS: NOVOLOG FLEXPEN 4 UNITS SC ×3 (09:02→18:23)
[2024-03-16] MEDS: NOVOLIN R INSULIN INFUSION 100 IV (09:09)
[2024-03-16 09:12] LABS: Glucose - Point of Care 110 mg/dl (70-99)
[2024-03-16 09:12] LABS: Glucose - Point of Care 124 mg/dl (70-99)
[2024-03-16] MEDS: THERAGRAN 1 TABLET PO (09:14)
[2024-03-16 09:16] LABS: Glucose - Point of Care 121 mg/dl (70-99)
[2024-03-16] MEDS: NSS IV (10:39)
--- NOTE | 2024-03-16 10:54 | W.PN.CD ---
Today's Communication / Plan
-
Encourage incentive spirometry, ambulation.
Monitor response to furosemide.
Chest tube/pain management per CT surgery.
Outpatient GLP-1 agonist.
Impression / Plan
-
Impression/Plan: 65M with hypertension, hyperlipidemia, diabetes mellitus, hypothyroidism and multivessel CAD admitted for elective CABG.
#CAD
-Chronic.
-s/p CABG x 3 (LYNCH to LAD, LRA to large diagonal, SVG to RPDA) by Dr. Farfan, 03/15/2024.
-Pre-LVEF 60% without wall motion abnormality, unchanged post.
-Postoperative management per CT surgery.
-Encourage incentive spirometry, ambulation.
-Continue amiodarone, amlodipine, clopidogrel, metoprolol and rosuvastatin.
-Furosemide 40 mg IV given this morning.
-Chest tube/pain control per CT surgery.
#Hypertension
-Chronic, currently normotensive.
-Irbesartan has been on hold since 03/12/2024. Restart home medications as hemodynamics dictate.
#Insulin-dependent diabetes mellitus
-Chronic, controlled.
-Preoperative HbA1c 6.4%.
-Transition from insulin gtt to AC/HS dosing.
#Dyslipidemia
-Chronic, stable.
-Increase rosuvastatin to 20 mg.
-Fasting lipid panel in 3 months. Goal LDL < 55.
#SEBASTIAN
-Chronic, stable.
-CPAP.
#Obesity
-CHronic, stable.
-BMI 33.
-He would benefit from GLP-1 agonist as an outpatient.
Poultry Hatchery Laborer: Dr. Randle
Subjective/Interval History:
Pressors weaned.
Nicardipine 5 mg/hour infusing for LRA patency.
Weight is stable.
SaO2 95% on 3 LNC.
DATA:
Intraoperative PIPE, 03/15/2024:
CONCLUSIONS
Normal biventricular systolic function. The LVEF is 60% by visual inspection
with no regional wall motion abnormalities.
Trace to mild mitral regurgiation.
The remaining cardiac valves are normal.
Grossly normal ascending aorta and aortic arch.
POST OPERATIVE FINDINGS
S/P CABG x 3: LYNCH-LAD; Radial-D; SVG-PDA
The mitral valve severity is reduced to trace. Otherwise unchanged exam.
Physical Exam
Vital Signs/Labs
Vital Signs
Temp Pulse Resp BP Pulse Ox
36.8 C 70 16 130/75 95
03/16/24 08:00 03/16/24 09:10 03/16/24 09:00 03/16/24 09:00 03/16/24 09:10
03/14/24 03/15/24 03/16/24
11:59 11:59 11:59
Actual Weight 121.7 kg 121.4 kg
03/16/24 03:22
03/16/24 03:22
PT 15.2 Sec (11.4-14.6) H 03/15/24 12:34
INR 1.22 03/15/24 12:34
APTT 28.1 Sec (23.4-35.0) 03/15/24 12:34
Magnesium 2.2 mg/dl (1.6-2.3) 03/16/24 03:22
Triglycerides 69 mg/dl (10-149) 03/16/24 03:22
LDL Cholesterol, Calc 53 mg/dl 03/16/24 03:22
VLDL Cholesterol, Calc 13 mg/dl (0-30) 03/16/24 03:22
HDL Cholesterol 36 mg/dl 03/16/24 03:22
Physical Exam
Constitutional: No acute distress and Comfortable
EENT: Anicteric and Moist mucous membranes
Cardiovascular: Rhythm & rate is regular, Pedal edema is absent, JVD pressure is normal, S1S2 is normal and Murmur/rub/gallop absent
Respiratory: Respiratory effort normal and Other (Decreased throughout.)
GI: Soft, Distention absent, Flat, Non tender and Normal bowel sounds
Neuro/Psych: AO x 3
Data Reviewed
-
Date of Service: March 16, 2024
Medical Decision Making: Reviewed Test Results, Independent Historian Assessment and Test Interpretation
EKG: Tracing Personally Visualized and interpreted and Report Reviewed by me
Echo: Report Reviewed by me
X-Ray/CT/US/MRI/NUC/PET: Image Personally Visualized and interpreted and Report Reviewed by me
Medical Tests (PFT, Pathology etc): Report Reviewed by me
Labs: Labs Reviewed by me
Old Records: Reviewed
[2024-03-16 11:01] LABS: Glucose - Point of Care 131 mg/dl (70-99)
--- NOTE | 2024-03-16 11:23 | CM ---
Chart reviewed. Patient is independent of ADLS, lives alone in a 2 STH, 2 NORI, 0 DME. Patient has supportive neighbors who will check in on him. He does have waterbed and has been practicing on getting in and out of bed. Plan is for the patient
to go home with CT Transitional RN. CM to follow
--- NOTE | 2024-03-16 11:37 | PTCARENOTE ---
Pt walked with cardiac rehab, tolerated well. Voided in urinal without issue. Epicardial V wire insulated. Left pleural chest tube d/c'd per order. Pt remains on insulin gtt per order.
[2024-03-16 13:28] LABS: Glucose - Point of Care 71 mg/dl (70-99)
[2024-03-16] MEDS: FERRLECIT 110 MG IV (13:33)
[2024-03-16] MEDS: FLEXERIL 5 MG PO ×2 (13:45→22:26)
[2024-03-16 14:14] LABS: Glucose - Point of Care 84 mg/dl (70-99)
--- NOTE | 2024-03-16 16:58 | PTCARENOTE ---
Assessment unchanged. Pt ambulated in deras x2 with RN assistance, tolerated well. Currently OOB in chair. Remains SR with HR 80's. BP 131/77 MAP 92.
[2024-03-16 16:59] LABS: Glucose - Point of Care 185 mg/dl (70-99)
[2024-03-16 18:24] LABS: Glucose - Point of Care 162 mg/dl (70-99)
[2024-03-16 19:46] LABS: Glucose - Point of Care 192 mg/dl (70-99)
--- NOTE | 2024-03-16 20:30 | PTCARENOTE ---
Report received from TANNER Thompson. Walking rounds done. Pt helped back to bed with 2 RNs. C/O 6/10 pain to L forearm and sternal pain. States incision to L arm is sore (closest to thumb). He feels a burning sensation near thumb and is unable to make a
complete fist. +palpable ulnar pulse. L hand warm, pink, cap refill < 2 seconds. JOE Ann at bedside and notified. L hand elevated on 2 pillows. Ice pack applied q20 min. Roxicodone 5 mg given at 1934.
Pt oriented x 4, speech clear. Sats on room air in bed are 91%. 2L/NC applied. BBS present. Decreased to B bases. CDB and IS encouraged. IS 1000 mls. Mediastinal CTs x 2 to -20 cm suction. See flowsheet. Pt in SR. Audible heart tones. + pericardial
rub. VS q 1 hr. Metoprolol 12.5 mg given as scheduled. For pulse and wound assessments, see flowsheets. Belly soft, nontender. Hypoactive bs x 4. Passing some flatus. Belching at times. Ate 100% of dinner tray. Voids clear, yellow urine in urinal.
Glycemic protocol followed. Insulin gtt infusing. Ongoing plan of care.
[2024-03-16 21:00] LABS: Glucose - Point of Care 165 mg/dl (70-99)
[2024-03-16] MEDS: DILAUDID 0.25 MG IV (22:50)
[2024-03-16 23:02] LABS: Glucose - Point of Care 138 mg/dl (70-99)
[2024-03-16] MEDS: CORDARONE 103 MG IV (23:53)
[2024-03-17] VITALS (26 sets, daily range): BP systolic 113–153; BP diastolic 63–90; PULSE 77; O2SAT 91–93; BMI 33.4
--- NOTE | 2024-03-17 | PTCARENOTE ---
Pt helped to BR to void 600 mls of clear, yellow urine. Pt helped back to bed. Noted to have increased frequency of PACs. Extra metoprolol 12.5 mg given at 2208 per order of PA. (For elevated BP as well) Amiodarone bolus, 150 mg, IV given at 2353.
Flexeril 5 mg po given at 2226 for sternal pain, R upper chest tightness. Increased pain after returning to bed. Dilaudid 0.25 mg given. Pt given CHG bath. Glycemic protocol maintained. Ongoing plan of care.
[2024-03-17 01:10] LABS: Glucose - Point of Care 168 mg/dl (70-99)
[2024-03-17 02:15] LABS: Glucose - Point of Care 141 mg/dl (70-99)
[2024-03-17 03:37] LABS: Glucose - Point of Care 100 mg/dl (70-99)
--- NOTE | 2024-03-17 04:00 | PTCARENOTE ---
Labs drawn and sent. VS done. Glycemic protocol followed. Pt states pain to L forearm is much better. Ice pack on/off q 20 min. Remains in SR with occasional PACs. Sats 96% on 3L/NC while sleeping.
[2024-03-17 04:04] LABS: Hematocrit 36.1 % (39.0-52.0); Hemoglobin 12.3 g/dL (13.0-18.0); Mean Corp Hgb Conc. 34.1 g/dL (33.0-37.0); Mean Corpuscular Hgb 28.7 pg (27.0-31.0); Mean Corpuscular Volume 84.3 fL (80.0-94.0); Mean Platelet Volume 10.7 fL (7.4-10.4); Platelet Count 186 10^3/uL (130-400); Red Blood Cell Count 4.28 10^6/uL (4.70-6.10); Red Cell Dist. Width 13.2 % (11.5-14.5); White Blood Cell Count 13.4 10^3/uL (4.8-10.8)
[2024-03-17 04:22] LABS: Blood Urea Nitrogen 19 mg/dl (9-20); Calcium 8.6 mg/dl (8.4-10.2); Carbon Dioxide 29 mmol/L (22-30); Chloride 102 mmol/L (98-107); Estimated Creatinine Clearance 97 ml/min; Glucose 89 mg/dl (70-99); Magnesium 2.2 mg/dl (1.6-2.3); Sodium 140 mmol/L (135-145); eGFR > 60.00
[2024-03-17] MEDS: NOVOLIN R INSULIN INFUSION 100 IV (04:31)
[2024-03-17] MEDS: SYNTHROID 88 MCG PO (04:33)
[2024-03-17] MEDS: TYLENOL 1000 MG PO ×3 (04:33→23:22)
[2024-03-17] MEDS: ROXICODONE 5 MG PO (04:33)
[2024-03-17 04:42] LABS: Glucose - Point of Care 128 mg/dl (70-99)
--- NOTE | 2024-03-17 04:48 | PTCARENOTE ---
Roxicodone 5 mg given for moderate sternal pain with coughing. Expectorating clear-tannish sputum, thick, small amount. Sats 95% on 3L/NC.
[2024-03-17 05:54] LABS: Glucose - Point of Care 92 mg/dl (70-99)
--- NOTE | 2024-03-17 06:16 | W.PN.CT ---
Today's Communication / Plan
-
-pod #2
-no significant issues overnight
-hypertensive, PACs- gave extra 12.5 mg Lopressor and Amio bolus last night, increased to 25 mg bid
-CT output: 2 meds 40/145
-diuresed well with 40 iv Lasix on 03/16 (UO 1550)
-wean off O2 as tolerated - pOx 96% on 3L
-current meds (ASA, Plavix, Crestor, Lopressor 25 bid, Norvasc 2.5 qd for radial graft, Protonix)
-encourage IS, OOB
Assessment / Plan
-
Assessment:
-S/P Sternotomy/CABG x 3 (In situ LYNCH to LAD, Ao to left radial to large diagonal, Ao to RSVG to RPDA)/Endoscopic left radial artery harvest and endoscopic vein harvesting of right lower extremity/Removal of skin lesion with primary closure/Rigid
sternal fixation with 3 gold box plate, by Dr Farfan, 03/15/24, pod#2
-Multivessel coronary disease with chronic total occlusion of the LAD with right to left collateralization
-Hypertension
-Hyperlipidemia
-T1DM (hgb A1C 6.4)
-Class 1 obesity (BMI 33.5)
-SEBASTIAN (does not use CPAP)
-Gout
-Hypothyroidism
-S/P bilateral bunionectomy
-S/P Vasectomy
-S/P Appendectomy
-Acute postop blood loss/Anemia (stable without blood transfusion)
-Acute postop atelectasis
-Acute postop hypovolemia with subsequent hypervolemia
-acute postop pulmonary insufficiency secondary to volume overload
Discussed patient care with: Nursing and Care Team
Subjective
Procedure
S/P Sternotomy/CABG x 3 (In situ LYNCH to LAD, Ao to left radial to large diagonal, Ao to RSVG to RPDA)/Endoscopic left radial artery harvest and endoscopic vein harvesting of right lower extremity/Removal of skin lesion with primary closure/Rigid
sternal fixation with 3 gold box plate, by Dr Farfan, 03/15/24
-
Date of Service: March 17, 2024
Objective Data
-
PT 15.2 Sec (11.4-14.6) H 03/15/24 12:34
INR 1.22 03/15/24 12:34
APTT 28.1 Sec (23.4-35.0) 03/15/24 12:34
Vital Signs
Vital Signs
Temp Pulse Resp BP Pulse Ox
99.6 F 72 15 139/78 96
03/16/24 23:00 03/17/24 02:09 03/17/24 02:09 03/17/24 02:09 03/17/24 02:09
CT Intake/Output/Weight
03/16/24 03/16/24 03/17/24
06:59 18:59 06:59
Intake Total 461.6 / 884.7 179.0 / 410.0 231.0 / 410.0
Output Total 930 / 1490 1660 / 2300 640 / 2300
Balance -468.4 / -605.3 -1481.0 / -1890.0 -409.0 / -1890.0
SaO2: 96
Physical Exam
-
General: Awake and AOx3
Cardiovascular: Regular rate & rhythm, No Murmurs and Rub
Respiratory: Decreased Breath Sounds
Sternum: Stable
Incision: Clean, Dry and Intact
Extremities: No Edema (2+DPs b/l)
Abdomen: soft, nontender, no nausea, + decreased bowel sounds
Data Reviewed
-
Lab Results: Results Reviewed
Medications: Active Meds Reviewed
Chest X-Ray: Report Reviewed and Image Reviewed
ECG: Report Reviewed and Image Reviewed
[2024-03-17] MEDS: LOPRESSOR 25 MG PO ×2 (06:17→20:31)
--- NOTE | 2024-03-17 07:00 | PTCARENOTE ---
Bedside walking rounds report received. Patient seen on rounds oob in chair on room air: awake alert and oriented x 3. NSR with frequent PAC's. Insulin protocol. Plan per CT surgery: new orders noted. See flowrecord for remaining assessments.
--- NOTE | 2024-03-17 07:15 | PTCARENOTE ---
Pt given Metoprolol 25 mg early this am per PA order. See MAR. Pt helped to BR then to standing scale. Pt then assisted to recliner chair. Report to TANNER Cagle. Walking rounds done.
--- NOTE | 2024-03-17 07:41 | W.PN.INTV ---
Today's Communication / Plan
Recommendations
Continue with supportive care per surgery
Chest tube management
Antihypertensive therapy, diuresis
Out of bed to chair, incentive spirometry
Follow radial/brachial left upper extremity wound healing, symptoms
Once transferred to telemetry, we will sign off. Please call with questions
Assessment
-
64-year-old male with history of hypertension, diabetes, sleep apnea not treated, presents with shortness of breath found to have abnormal EKG,, abnormal stress test. Catheterization revealed multivessel disease. He is status post CAB x 3 on
03/15/2024 (left upper extremity radial, right lower extremity venous harvest)
S/p CAB x 3, 03/15/24
Multivessel coronary disease
Abnormal stress test, progressive shortness of breath
Normal EF, with hypokinesis of inferior wall
Conditions present prior to admission
Hypertension/hyperlipidemia
Type 1 diabetes
Sleep apnea, untreated
Details unclear
History of gout
Family history of coronary disease (father)
Occasional cigar use
Moving forward
At this time, patient appears comfortable, sitting in chair
Primary complaint is left, discomfort/burning sensation. Radial incision and brachial incision intact
Weaned off pressors
Required amiodarone and Lopressor for hypertension overnight
Continue diuresis
Chest x-ray unremarkable
Moving forward
Continue with management per CT surgery
Follow hemoglobin, blood sugars, remains on insulin drip, being weaned
Follow urine output
Preoperative CT chest 03/10/2024 reviewed. No significant parenchymal pulmonary abnormality
History of sleep apnea noted. Patient denies
Preoperative serum bicarbonate normal
Follow clinically
Left upper extremity radial discomfort with burning sensation involving the thumb
CT surgery following
DVT prophylaxis, GI prophylaxis per CT surgery protocol
Reviewed with critical care nursing
Once transferred to telemetry, we will sign off. Please call with questions
Subjective Dataa
Subjective Data
Date of Service:
Date of Service: March 17, 2024
Subjective:
Patient is feeling well. Primary complaint is left thumb discomfort near area of radial artery incision. Denies chest pain, nausea, abdominal pain. Passing gas
Objective Data
Data Reviewed
Vital Signs / I&O / Oxygen:
Vital Signs
Temp Pulse Resp BP Pulse Ox
98.6 F 75 16 153/86 91
03/17/24 03:00 03/17/24 07:30 03/17/24 03:00 03/17/24 06:17 03/17/24 07:00
Intake and Output
03/16/24 03/17/24 03/18/24
06:59 06:59 06:59
Intake Total 870.7 / 884.7 449.2 / 449.2
Output Total 1470 / 1490 2740 / 2740
Balance -599.3 / -605.3 -2290.8 / -2290.8
SaO2 [CPAP/PSV] 98
SaO2 [SIMV] 94
SaO2 91
Nasal Cannula flow liters per 3
minute
Physical Exam
General: Comfortable and Other (Left upper extremity radial and brachial incision intact)
HEENT: Normocephalic and Anicteric
Cardiovascular: S1-S2, Regular Rhythm and Murmur (n)
Respiratory: Wheeze (n), Crackles (n), Rhonchi (n) and Non-Labored Respirations
GI: Soft and Non Distended
Neurology: Awake and Alert
Skin: Cyanosis (n) and Jaundice (n)
Labs/Micro/Reports
Lab Data
03/17/24 03:50
03/17/24 03:50
[2024-03-17 07:58] LABS: Glucose - Point of Care 144 mg/dl (70-99)
[2024-03-17] MEDS: NOVOLOG FLEXPEN 4 UNITS SC ×2 (07:58→13:02)
[2024-03-17] MEDS: PACERONE 200 MG PO ×3 (08:12→23:22)
[2024-03-17] MEDS: PROTONIX 40 MG PO (08:12)
[2024-03-17] MEDS: NEURONTIN 100 MG PO ×3 (08:12→23:21)
[2024-03-17] MEDS: PLAVIX 75 MG PO (08:12)
[2024-03-17] MEDS: LOW STRENGTH ASPIRIN 81 MG PO (08:12)
[2024-03-17] MEDS: THERAGRAN 1 TABLET PO (08:12)
[2024-03-17] MEDS: CRESTOR 20 MG PO (08:12)
[2024-03-17] MEDS: LIDOCAINE 4% PATCH 1 PATCH TOPICAL ×2 (08:12→08:14)
[2024-03-17] MEDS: SENOKOT-S 1 TABLET PO ×2 (08:13→20:32)
[2024-03-17] MEDS: FLEXERIL 5 MG PO (08:13)
[2024-03-17] MEDS: MUCINEX 600 MG PO ×2 (08:13→20:32)
[2024-03-17] MEDS: BACTROBAN 2% OINTMENT 1 APPLIC NASAL ×2 (08:13→20:33)
[2024-03-17] MEDS: MAGNESIUM OXIDE 500 MG PO ×2 (08:13→20:32)
--- NOTE | 2024-03-17 09:00 | PTCARENOTE ---
No acute changes: ambulated hallway: then assisted back to bed: Temp epicardial v wire dc by JOE Zayas: q 15minute vitals, q 15 minute checks on med chest tubes outputs. See flowrecord for remaining assessments.
--- NOTE | 2024-03-17 09:44 | W.PN.CD ---
Today's Communication / Plan
-
Routine post-op care
Impression / Plan
-
Impression/Plan: 65M with hypertension, hyperlipidemia, diabetes mellitus, hypothyroidism and multivessel CAD admitted for elective CABG.
#CAD
-Chronic.
-s/p CABG x 3 (LYNCH to LAD, LRA to large diagonal, SVG to RPDA) by Dr. Farfan, 03/15/2024.
-Pre-LVEF 60% without wall motion abnormality, unchanged post.
-Postoperative management per CT surgery.
-Encourage incentive spirometry, ambulation.
-Continue amiodarone, amlodipine, clopidogrel, metoprolol and rosuvastatin.
-Diuresis prn
-Chest tube/pain control per CT surgery.
#Hypertension
-Chronic, currently normotensive.
-Irbesartan has been on hold since 03/12/2024. Restart home medications as hemodynamics dictate.
#Insulin-dependent diabetes mellitus
-Chronic, controlled.
-Preoperative HbA1c 6.4%.
-Transition from insulin gtt to AC/HS dosing.
#Dyslipidemia
-Chronic, stable.
-Continue rosuvastatin 20 mg.
-Fasting lipid panel in 3 months. Goal LDL < 55.
#SEBASTIAN
-Chronic, stable.
-CPAP.
#Obesity
-CHronic, stable.
-BMI 33.
-He would benefit from GLP-1 agonist as an outpatient.
Shell Plater: Dr. Randle
Subjective/Interval History:
Feels well this AM
Bolused with amio and started on BB overnight for PACs
DATA:
Intraoperative PIPE, 03/15/2024:
CONCLUSIONS
Normal biventricular systolic function. The LVEF is 60% by visual inspection
with no regional wall motion abnormalities.
Trace to mild mitral regurgiation.
The remaining cardiac valves are normal.
Grossly normal ascending aorta and aortic arch.
POST OPERATIVE FINDINGS
S/P CABG x 3: LYNCH-LAD; Radial-D; SVG-PDA
The mitral valve severity is reduced to trace. Otherwise unchanged exam.
Physical Exam
Vital Signs/Labs
Vital Signs
Temp Pulse Resp BP Pulse Ox
97.6 F 70 18 121/73 96
03/17/24 08:16 03/17/24 08:16 03/17/24 08:16 03/17/24 08:16 03/17/24 08:16
03/16/24 03/17/24 03/18/24
06:59 06:59 06:59
Actual Weight 121.4 kg 121.3 kg
03/17/24 03:50
03/17/24 03:50
PT 15.2 Sec (11.4-14.6) H 03/15/24 12:34
INR 1.22 03/15/24 12:34
APTT 28.1 Sec (23.4-35.0) 03/15/24 12:34
Magnesium 2.2 mg/dl (1.6-2.3) 03/17/24 03:50
Triglycerides 69 mg/dl (10-149) 03/16/24 03:22
LDL Cholesterol, Calc 53 mg/dl 03/16/24 03:22
VLDL Cholesterol, Calc 13 mg/dl (0-30) 03/16/24 03:22
HDL Cholesterol 36 mg/dl 03/16/24 03:22
Physical Exam
Constitutional: No acute distress and Comfortable
Cardiovascular: Rhythm & rate is regular, Pedal edema is absent, JVD pressure is normal, S1S2 is normal and Murmur/rub/gallop absent
Respiratory: Respiratory effort normal and Other (decreased breath sounds at R base)
Data Reviewed
-
Date of Service: March 17, 2024
Medical Decision Making: Reviewed Test Results, Independent Historian Assessment, Test Interpretation and Review of Case with other Provider
EKG: Tracing Personally Visualized and interpreted
Echo: Report Reviewed by me
Labs: Labs Reviewed by me
Total Time Spent with Patient (in minutes): 35
[2024-03-17] MEDS: NORVASC 5 MG PO (09:56)
[2024-03-17 10:10] LABS: Glucose - Point of Care 195 mg/dl (70-99)
--- NOTE | 2024-03-17 10:30 | PTCARENOTE ---
Remains in bed after temp epicardial v wire by Marquez DIAZ at 9am. Mininimal drainage output out of mediastinal chest tubes. OK to dc. Q 15 hour vitals done and stable. Mediastinal chest tubes x 2 sutures dc. Patient tolerated well.
[2024-03-17 11:07] LABS: Glucose - Point of Care 216 mg/dl (70-99)
--- NOTE | 2024-03-17 12:00 | PTCARENOTE ---
No acute changes and ambulated a instructed patient: [facility] here: epmphasized importance of walking in deras way at lest 4 times today. Remains on room air. Reinforced diabetic teaching: simple v complex carbs and insulin resistance. Also
instructed to balance out meals with increased protein
[2024-03-17 12:08] LABS: Glucose - Point of Care 125 mg/dl (70-99)
[2024-03-17] MEDS: FERRLECIT 110 MG IV (13:58)
[2024-03-17] MEDS: NSS IV (13:59)
[2024-03-17 14:20] LABS: Glucose - Point of Care 112 mg/dl (70-99)
--- NOTE | 2024-03-17 16:00 | PTCARENOTE ---
No acute changes. Patient is now in column 5 on insulin cvicu protocol: Fransisca Resendiz PA-c aware of same. Keep insulin gtt for now: new orders for pharmacy to dose a long acting insulin then turn off insulin protocol tonight. NSR. Room air . Ambulated
225feet earlier: 3rd walk of goal of 4 for today.
[2024-03-17 17:43] LABS: Glucose - Point of Care 129 mg/dl (70-99)
[2024-03-17 17:43] LABS: Glucose - Point of Care 120 mg/dl (70-99)
[2024-03-17] MEDS: GLUCOTROL 10 MG PO (17:52)
[2024-03-17] MEDS: GLUCOPHAGE 500 MG PO (17:53)
[2024-03-17 18:16] LABS: Glucose - Point of Care 104 mg/dl (70-99)
[2024-03-17] MEDS: NOVOLOG FLEXPEN 8 UNITS SC (18:16)
[2024-03-17 20:03] LABS: Glucose - Point of Care 171 mg/dl (70-99)
--- NOTE | 2024-03-17 21:00 | PTCARENOTE ---
Report received from TANNER Cagle. Walking rounds done. Pt awake, alert, oriented x 4. Speech clear . Equal strength x 4. Pt on room air. Sats 91-93%. In bed, room air sat is 91%. 2L/NC applied. Sats 93-97%. BBS present. Decreased to B bases. CDB
encouraged. Pt in SR. Audible heart tones. Normotensive. Scheduled meds given. For pulse and wound assessments, see flowsheets. Belly soft, nontender. Normoactive bs x 4. Pt voids in urinal, clear, yellow urine. Walked entire loop of IVU and CVICU
with RN. Glycemic protocol. Insulin gtt at 12 units/hr. Ongoing plan of care.
[2024-03-17 21:28] LABS: Glucose - Point of Care 117 mg/dl (70-99)
[2024-03-17 23:20] LABS: Glucose - Point of Care 75 mg/dl (70-99)
[2024-03-18] VITALS (11 sets, daily range): BP systolic 110–147; BP diastolic 66–86; PULSE 65; O2SAT 94–97; BMI 33.6
[2024-03-18 00:27] LABS: Glucose - Point of Care 102 mg/dl (70-99)
[2024-03-18] MEDS: LANTUS 0.2 UNITS SC (01:44)
[2024-03-18 01:45] LABS: Glucose - Point of Care 101 mg/dl (70-99)
--- NOTE | 2024-03-18 02:00 | PTCARENOTE ---
Insulin gtt off at 2315 per order. Lantus order changed. Glucose 101. Lantus 20 units given SC per order. Remains in SR. 2L/NC.
[2024-03-18 04:35] LABS: Glucose - Point of Care 80 mg/dl (70-99)
--- NOTE | 2024-03-18 04:40 | PTCARENOTE ---
Morning labs drawn and sent. Blood glucose via glucometerm
--- NOTE | 2024-03-18 04:41 | PTCARENOTE ---
Labs drawn and sent. Blood glucose check: glucose is 80. Pt states he is feeling well. VS recorded. JOE Ann at bedside to see pt this am. He remains in SR, sats 95% on 2L/NC while in bed.
[2024-03-18 04:44] LABS: Hematocrit 34.5 % (39.0-52.0); Hemoglobin 11.8 g/dL (13.0-18.0); Mean Corp Hgb Conc. 34.2 g/dL (33.0-37.0); Mean Corpuscular Hgb 29.6 pg (27.0-31.0); Mean Corpuscular Volume 86.5 fL (80.0-94.0); Mean Platelet Volume 11.3 fL (7.4-10.4); Platelet Count 179 10^3/uL (130-400); Red Blood Cell Count 3.99 10^6/uL (4.70-6.10); Red Cell Dist. Width 12.8 % (11.5-14.5)
[2024-03-18 05:19] LABS: Blood Urea Nitrogen 22 mg/dl (9-20); Calcium 8.7 mg/dl (8.4-10.2); Carbon Dioxide 29 mmol/L (22-30); Chloride 102 mmol/L (98-107); Estimated Creatinine Clearance 96 ml/min; Glucose 80 mg/dl (70-99); Magnesium 2.1 mg/dl (1.6-2.3); Potassium 3.8 mmol/L (3.5-5.1); Sodium 140 mmol/L (135-145); eGFR > 60.00
[2024-03-18] MEDS: SYNTHROID 88 MCG PO (06:45)
[2024-03-18] MEDS: TYLENOL 1000 MG PO (06:45)
--- NOTE | 2024-03-18 06:47 | W.PN.CT ---
Today's Communication / Plan
-
-pod #3
-no issues overnight
-current meds (ASA, Plavix, Crestor, Lopressor 25 bid, Norvasc 5 qd for radial graft, Protonix)
-encourage IS, OOB, continue to ambulate
-possible d/c soon
Assessment / Plan
-
Assessment:
-S/P Sternotomy/CABG x 3 (In situ LYNCH to LAD, Ao to left radial to large diagonal, Ao to RSVG to RPDA)/Endoscopic left radial artery harvest and endoscopic vein harvesting of right lower extremity/Removal of skin lesion with primary closure/Rigid
sternal fixation with 3 gold box plate, by Dr Farfan, 03/15/24, pod#3
-Multivessel coronary disease with chronic total occlusion of the LAD with right to left collateralization
-Hypertension
-Hyperlipidemia
-T1DM (hgb A1C 6.4)
-Class 1 obesity (BMI 33.5)
-SEBASTIAN (does not use CPAP)
-Gout
-Hypothyroidism
-S/P bilateral bunionectomy
-S/P Vasectomy
-S/P Appendectomy
-Acute postop blood loss/Anemia (stable without blood transfusion)
-Acute postop atelectasis
-Acute postop hypovolemia with subsequent hypervolemia
-acute postop pulmonary insufficiency secondary to volume overload
Discussed patient care with: Nursing and Care Team
Subjective
Procedure
S/P Sternotomy/CABG x 3 (In situ LYNCH to LAD, Ao to left radial to large diagonal, Ao to RSVG to RPDA)/Endoscopic left radial artery harvest and endoscopic vein harvesting of right lower extremity/Removal of skin lesion with primary closure/Rigid
sternal fixation with 3 gold box plate, by Dr Farfan, 03/15/24
-
Date of Service: March 18, 2024
Objective Data
-
Lab Results
03/18/24 04:31
03/18/24 04:31
PT 15.2 Sec (11.4-14.6) H 03/15/24 12:34
INR 1.22 03/15/24 12:34
APTT 28.1 Sec (23.4-35.0) 03/15/24 12:34
Vital Signs
Vital Signs
Temp Pulse Resp BP Pulse Ox
98 F 68 15 133/76 95
03/18/24 04:00 03/18/24 06:30 03/18/24 04:00 03/18/24 06:00 03/18/24 06:30
CT Intake/Output/Weight
03/17/24 03/17/24 03/18/24
06:59 18:59 06:59
Intake Total 270.2 / 449.2 1181.6 / 1300.9 119.3 / 1300.9
Output Total 1080 / 2740 760 / 1660 900 / 1660
Balance -809.8 / -2290.8 421.6 / -359.1 -780.7 / -359.1
SaO2: 95
Physical Exam
-
General: Awake and AOx3
Cardiovascular: Regular rate & rhythm, No Murmurs and No Rub
Respiratory: Decreased Breath Sounds
Sternum: Stable
Incision: Clean, Dry and Intact
Extremities: No Edema (2+ DPs)
Abdomen: soft, nondistended, no nausea
Data Reviewed
-
Lab Results: Results Reviewed
Medications: Active Meds Reviewed
Chest X-Ray: Report Reviewed and Image Reviewed
ECG: Report Reviewed and Image Reviewed
--- NOTE | 2024-03-18 07:29 | PTCARENOTE ---
Pt helped up to standing. Weighed on standing scale. Helped to recliner chair. Report to TANNER Dewitt. Walking rounds done.
--- NOTE | 2024-03-18 07:29 | W.PN.INTV ---
Today's Communication / Plan
Recommendations
Continue with cardiothoracic/cardiac management
Ambulating without difficulty
Incentive spirometry
Disposition efforts
Patient transferred to telemetry. We will sign off. Please call with questions
Assessment
-
64-year-old male with history of hypertension, diabetes, sleep apnea not treated, presents with shortness of breath found to have abnormal EKG,, abnormal stress test. Catheterization revealed multivessel disease. He is status post CAB x 3 on
03/15/2024 (left upper extremity radial, right lower extremity venous harvest)
S/p CAB x 3, 03/15/24
Multivessel coronary disease
Abnormal stress test, progressive shortness of breath
Normal EF, with hypokinesis of inferior wall
Conditions present prior to admission
Hypertension/hyperlipidemia
Type 1 diabetes
Sleep apnea, untreated
Details unclear
History of gout
Family history of coronary disease (father)
Occasional cigar use
Moving forward
At this time, patient appears comfortable, sitting in chair
Without any significant complaints
Chest x-ray unremarkable
Moving forward
Continue with management per CT surgery
Patient ambulating without difficulty
Follow urine output
Preoperative CT chest 03/10/2024 reviewed. No significant parenchymal pulmonary abnormality
History of sleep apnea noted. Patient denies
Preoperative serum bicarbonate normal
Follow clinically
Left upper extremity radial discomfort with burning sensation involving the thumb
CT surgery following
DVT prophylaxis, GI prophylaxis per CT surgery protocol
Reviewed with critical care nursing
Patient transferred to telemetry. We will sign off. Please call with questions
Subjective Dataa
Subjective Data
Date of Service:
Date of Service: March 18, 2024
Subjective:
Patient is without complaints. Denies shortness of breath, chest pain, nausea, abdominal pain. Sitting in chair, appears to be in good spirits
Objective Data
Data Reviewed
Vital Signs / I&O / Oxygen:
Vital Signs
Temp Pulse Resp BP Pulse Ox
98 F 68 15 133/76 95
03/18/24 04:00 03/18/24 06:30 03/18/24 04:00 03/18/24 06:00 03/18/24 06:49
Intake and Output
03/17/24 03/18/24 03/19/24
06:59 06:59 06:59
Intake Total 449.2 / 449.2 1340.9 / 1340.9
Output Total 2740 / 2740 2110 / 2110
Balance -2290.8 / -2290.8 -769.1 / -769.1
SaO2 [CPAP/PSV] 98
SaO2 [SIMV] 94
SaO2 95
Nasal Cannula flow liters per 2
minute
Physical Exam
General: Comfortable and Other (Left upper extremity radial and brachial incision intact)
HEENT: Normocephalic and Anicteric
Cardiovascular: S1-S2, Regular Rhythm and Murmur (n)
Respiratory: Wheeze (n), Crackles (n), Rhonchi (n) and Non-Labored Respirations
GI: Soft and Non Distended
Neurology: Awake and Alert
Skin: Cyanosis (n) and Jaundice (n)
Labs/Micro/Reports
Lab Data
03/18/24 04:31
03/18/24 04:31
[2024-03-18 07:52] LABS: Glucose - Point of Care 89 mg/dl (70-99)
[2024-03-18] MEDS: NOVOLOG FLEXPEN SC (07:58)
[2024-03-18] MEDS: MUCINEX 600 MG PO (08:08)
[2024-03-18] MEDS: GLUCOPHAGE 500 MG PO (08:08)
[2024-03-18] MEDS: THERAGRAN 1 TABLET PO (08:08)
[2024-03-18] MEDS: PLAVIX 75 MG PO (08:08)
[2024-03-18] MEDS: LOPRESSOR 25 MG PO (08:08)
[2024-03-18] MEDS: PACERONE 200 MG PO (08:08)
[2024-03-18] MEDS: NEURONTIN 100 MG PO (08:08)
[2024-03-18] MEDS: NORVASC 5 MG PO (08:09)
[2024-03-18] MEDS: CRESTOR 20 MG PO (08:09)
[2024-03-18] MEDS: MAGNESIUM OXIDE 500 MG PO (08:09)
[2024-03-18] MEDS: PROTONIX 40 MG PO (08:09)
[2024-03-18] MEDS: LIDOCAINE 4% PATCH 1 PATCH TOPICAL ×2 (08:09→08:10)
[2024-03-18] MEDS: GLUCOTROL 10 MG PO (08:09)
[2024-03-18] MEDS: LOW STRENGTH ASPIRIN 81 MG PO (08:09)
[2024-03-18] MEDS: SENOKOT-S 1 TABLET PO (08:09)
[2024-03-18] MEDS: BACTROBAN 2% OINTMENT 1 APPLIC NASAL (08:10)
--- NOTE | 2024-03-18 08:22 | PTCARENOTE ---
assumed care of pt from previous shift RN, sinus rhythm on tele HR 80's, BP 129/80, + peripheral pulses, no edema. Lungs clr, pox 94% on RA, coughing and deep breathing encouraged. +bs, tolerating PO intake, voids spontaneously. Surgical sites
approximated. Cordis and PIV flush easily. Pain is well controlled. Plan of care reviewed w the pt and questions encouraged.
--- NOTE | 2024-03-18 08:27 | W.PN.CD ---
Today's Communication / Plan
-
-Continue amiodarone, amlodipine, clopidogrel, metoprolol tartrate, and rosuvastatin.
-Irbesartan has been on hold since 03/12/2024; resume on discharge as patient is diabetic and has CAD (can discontinue amlodipine at that time).
-Outpatient follow-up with primary Affiliate Marketing Coordinator (Dr. Randle).
Impression / Plan
-
Impression/Plan: 65M with hypertension, hyperlipidemia, diabetes mellitus, hypothyroidism and multivessel CAD admitted for elective CABG.
#CAD
-Chronic.
-s/p CABG x 3 (LYNCH to LAD, LRA to large diagonal, SVG to RPDA) by Dr. Farfan, 03/15/2024.
-Pre-LVEF 60% without wall motion abnormality, unchanged post.
-Continue routine postoperative management per CT Surgery.
-Encourage incentive spirometry, ambulation.
-Continue amiodarone, amlodipine, clopidogrel, metoprolol tartrate, and rosuvastatin.
#Hypertension
-Chronic, currently normotensive.
-Irbesartan has been on hold since 03/12/2024; resume on discharge as patient is diabetic and has CAD (can discontinue amlodipine at that time).
#Insulin-dependent diabetes mellitus
-Preoperative HbA1c 6.4%.
-Continue current management.
#Dyslipidemia
-Chronic, stable.
-Continue rosuvastatin 20 mg.
-Fasting lipid panel in 3 months; goal LDL < 55.
#Hypothyroidism
-On Synthroid
#SEBASTIAN
-Chronic, stable.
-CPAP.
#Obesity
-CHronic, stable.
-BMI 33.
-He would benefit from GLP-1 agonist as an outpatient.
-Weight loss recommended.
Affiliate Marketing Coordinator: Dr. Randle
Subjective/Interval History:
No major events overnight. Sinus rhythm on telemetry.
DATA:
Intraoperative PIPE, 03/15/2024:
CONCLUSIONS
Normal biventricular systolic function. The LVEF is 60% by visual inspection
with no regional wall motion abnormalities.
Trace to mild mitral regurgiation.
The remaining cardiac valves are normal.
Grossly normal ascending aorta and aortic arch.
POST OPERATIVE FINDINGS
S/P CABG x 3: LYNCH-LAD; Radial-D; SVG-PDA
The mitral valve severity is reduced to trace. Otherwise unchanged exam.
Physical Exam
Vital Signs/Labs
Vital Signs
Temp Pulse Resp BP Pulse Ox
97.8 F 80 16 129/80 94
03/18/24 08:00 03/18/24 08:06 03/18/24 08:00 03/18/24 08:06 03/18/24 08:00
03/17/24 03/18/24 03/19/24
06:59 06:59 06:59
Actual Weight 121.3 kg 122.1 kg
03/18/24 04:31
03/18/24 04:31
PT 15.2 Sec (11.4-14.6) H 03/15/24 12:34
INR 1.22 03/15/24 12:34
APTT 28.1 Sec (23.4-35.0) 03/15/24 12:34
Magnesium 2.1 mg/dl (1.6-2.3) 03/18/24 04:31
Triglycerides 69 mg/dl (10-149) 03/16/24 03:22
LDL Cholesterol, Calc 53 mg/dl 03/16/24 03:22
VLDL Cholesterol, Calc 13 mg/dl (0-30) 03/16/24 03:22
HDL Cholesterol 36 mg/dl 03/16/24 03:22
Physical Exam
Constitutional: No acute distress and Comfortable
EENT: Anicteric
Cardiovascular: Rhythm & rate is regular, Pedal edema is absent, Systolic murmur absent and S1S2 is normal
Respiratory: Respiratory effort normal and Lungs clear to auscul.
GI: Soft and Non tender
Neuro/Psych: AO x 3
Other: Skin (Warm, dry, intact)
Data Reviewed
-
Date of Service: March 18, 2024
EKG: Tracing Personally Visualized and interpreted (Telemetry: Sinus rhythm)
Labs: Labs Reviewed by me
Critical Care Time (in minutes): 32
--- NOTE | 2024-03-18 08:45 | W.DCSUMMARY ---
Discharge Summary
Discharge Data
Date of Admission: 03/15/24
Date of Discharge: 03/18/24
Total time spent discharging patient (in min): 35
-
Pending Results: No
Hospital Course
Primary care physician:
Dr. Danny Olson
Outpatient instrumentation engineering technician:
Dr. Morales Ha
Inpatient consultants:
CBC, director of home care hospice
Procedures:
1. Coronary artery bypass grafting x 3 (In situ LYNCH to LAD, Ao to left radial to large diagonal, Ao to RSVG to RPDA)
Primary Diagnosis:
1. Multivessel coronary disease with chronic total occlusion of the LAD with right to left collateralization
Secondary Diagnoses:
1. Hypertension
2. Hypothyroidism
3. Hyperlipidemia
4. SEBASTIAN
5. Morbidly obese with a BMI of greater than 30
6. Diabetes type 1
7. Gout
HPI: 64-year-old male who was found to have multivessel coronary disease. He has a chronic total occlusion of the proximal LAD with a large diagonal system that has a tubular stenosis of the ostial proximal portion. Given his young age, diabetic
status and multivessel involvement, he was offered surgical revascularization and presented electively on 03/[address] Farfan.
Hospital course:
Patient presented electively on 03/15 for coronary artery bypass surgery with Dr. Farfan. Postoperatively he returned to the CVICU on Cardene, Levophed, Precedex, and insulin infusions. Precedex infusion was turned off and patient was extubated by
1600. On 03/16 postoperative day #1 patient's pleural chest tubes were removed he was diuresed with 40 mg of IV Lasix and started on aspirin, Plavix, beta-maikel, statin, and Norvasc. On 03/17 postoperative day #2, pacing wire was pulled along
with mediastinal chest tubes. Ambulating and doing well. He was complaining of some mild left hand pain which improved throughout the day. On 03/18 postoperative day #3 patient remained hemodynamically stable and he was deemed stable for discharge.
Home medication changes:
See below
Discharge Plan
-
Patient Disposition: Home (Routine Discharge)
Discharge Diagnosis/Procedures: CABG X3
Condition: Good
Diet: Low Cholesterol and 2 Gram Sodium
Activity: No strenuous activity
Driving Restrictions: Not until seen by your Dr
Bathing Restrictions: OK to Shower
Other Services: Cardiac Rehab
Specialty Instructions: Weigh Daily- Call MD for wt gain/loss 3 lbs overnight/5 lbs in 1 week
Activity Restrictions/Additional Instructions:
Please call to make appointments for Phase II Cardiac Rehab:
Art[facility]
[phone]
ACTIVITY:
-No strenuous activity: no heavy lifting, pushing, pulling anything over 15 pounds for one month
-continue to use stairs as tolerated
DRIVING RESTRICTIONS:
-No driving for one month or until approved by your surgeon
WOUND CARE:
-Shower daily. Use soap & water.
-No lotions, creams or powders on incision area.
DIET:
-continue a low fat/low cholesterol diet.
-IF you are diabetic, continue carb controlled diet.
CARDIAC REHAB:
-Please make appointment to start in 5-6 weeks with your local hospital program. (See Cardiac Rehabilitation Discharge Booklet).
SPECIALTY INSTRUCTIONS:
-Weigh yourself daily. Call your physician for any weight gain/loss of 3 lbs overnight or 5 lbs in one week.
-REPORT any clicking noise or uneven appearance of your sternum to your surgeon immediately.
-If you smoke, you are instructed to quit. The [place] smoking hotline phone number is [phone]
Referrals:
CT Transitional Care Nurse [Outside] (The Cardiothoracic Transitional Care Nurse will call you to set up a visit in 1-2 days.)
Danny Olson DO [Family Provider] -
Suhail Randle MD [Active] - 05/09/24 3:40 pm
Steve Farfan MD [Active] - 04/19/24 2:30 pm
Additional Discharge Medication Instructions: Please note that your dose of Rosuvastatin has been increased to 20mg and stop your irbesartan
Prescriptions:
New
cyclobenzaprine 10 mg Tablet
5 mg PO Q8HPRN PRN (Reason: muscle spasm) Qty: 30 0RF
acetaminophen 325 mg Tablet
650 mg PO Q4HPRN PRN (Reason: mild pain,headache,temp >101F ) Qty: 0 0RF
clopidogrel 75 mg Tablet
75 mg PO DAILY Qty: 30 0RF
amlodipine 5 mg Tablet
5 mg PO DAILY Qty: 60 1RF
oxycodone 5 mg Tablet
2.5 mg PO Q4HPRN PRN (Reason: severe pain) Qty: 10 0RF
rosuvastatin 20 mg Tablet
20 mg PO DAILY Qty: 60 0RF
metoprolol tartrate 25 mg Tablet
25 mg PO Q12 Qty: 90 1RF
lidocaine 4 % Adhesive Patch,Medicated
1 patch topical DAILY Qty: 0 0RF
gabapentin 300 mg capsule
300 mg PO TID Qty: 90 0RF
Continued
multivitamin Tablet
1 tab PO DAILY
metformin 500 mg Tablet
500 mg PO BID
glipizide 10 mg Tablet
10 mg PO BID
levothyroxine 88 mcg Tablet
88 mcg PO DAILY
aspirin 81 mg Tablet,Chewable
81 mg PO DAILY
Vitamin D3
1 cap PO DAILY
Patient Comments:
patient unsure of dosage
insulin glargine U-300 conc [Toujeo SoloStar U-300 Insulin] 300 unit/mL (1.5 mL) Insulin Pen
34 unit SC HS
Ozempic 0.25 mg or 0.5 mg(2 mg/1.5 mL) Pen Injector
0.5 mg SC QWEEK
Discontinued
irbesartan 150 mg Tablet
150 mg PO DAILY
rosuvastatin 5 mg Tablet
5 mg PO DAILY
Discharge Orders:
Discharge Patient (As Directed); Ordered 03/18/24
Ordered By: Heather Forbes
Care Plan Goals
Care Plan Goals:
Problem: Readiness for enhanced knowledge related to diagnosis and treatment plan
Goal: Understand your diagnosis and treatment plan needs, including medications if applicable.
Instructions: Know your diagnosis, underlying causes and treatment plan options, including medications if applicable. Consult with your health care team to learn about your diagnosis and treatment plan, including medications if applicable.
Discharge Date and Time
Print Language: ROMANSH
--- NOTE | 2024-03-18 10:00 | PTCARENOTE ---
Patient received from Renate RN; AAOx3, responds to RN spontaneously and follows commands; Anxious at times; VSS; NSR on monitor; Left ulnar, right radial, and DP pulses present; SpO2 95% on RA; IS 1500 ml; Lungs diminished at bases; Patient passing
gas but reports no BM yet; Patient urinating in bathroom; Surgical sites intact; RIJ Cordis discontinued and removed; PIVx1 #20 right wrist; Patient reports 2/10 shooting LUE pain but states it meets an acceptable level; See nursing documentation
for further details.
--- NOTE | 2024-03-18 11:55 | PTCARENOTE ---
Patient discharged home; IV and telemetry pack removed; VSS; Patient belongings in bag with patient; Transported by volunteer in wheelchair; Patient states full understanding of discharge instructions and has no further questions at this time;
Patient showered with CHG before discharge.
== END 2024-03-18 12:48 | disposition home or self-care (01) | DRG 235 ==
LOC: CVICU 04:59
PROVIDERS: Anesthesiology; Clinical Nurse Specialist Acute Care; ADMITTING PHYSICIAN Thoracic Surgery (Cardiothoracic Vascular Surgery); CONSULT PHYSICIAN Internal Medicine; CONSULT PHYSICIAN Internal Medicine Critical Care Medicine; FAMILY PHYSICIAN Family Medicine
PROC: 02100Z9 Bypass Coronary Artery, One Artery from Left Internal Mammary, Open Approach (ICD-10-PCS; 2024-03-15)
PROC: B24BZZ4 Ultrasonography of Heart with Aorta, Transesophageal (ICD-10-PCS; 2024-03-15)
PROC: 0HB5XZZ Excision of Chest Skin, External Approach (ICD-10-PCS; 2024-03-15)
PROC: 03BC4ZZ Excision of Left Radial Artery, Percutaneous Endoscopic Approach (ICD-10-PCS; 2024-03-15)
PROC: 5A1221Z Performance of Cardiac Output, Continuous (ICD-10-PCS; 2024-03-15)
PROC: 021009W Bypass Coronary Artery, One Artery from Aorta with Autologous Venous Tissue, Open Approach (ICD-10-PCS; 2024-03-15)
PROC: 02100AW Bypass Coronary Artery, One Artery from Aorta with Autologous Arterial Tissue, Open Approach (ICD-10-PCS; 2024-03-15)
PROC: 06BP4ZZ Excision of Right Saphenous Vein, Percutaneous Endoscopic Approach (ICD-10-PCS; 2024-03-15)
DX: I25.10 Atherosclerotic heart disease of native coronary artery without angina pectoris (principal); J95.1 Acute pulmonary insufficiency following thoracic surgery; D62 Acute posthemorrhagic anemia; J98.11 Atelectasis; I25.82 Chronic total occlusion of coronary artery; I10 Essential (primary) hypertension; E78.5 Hyperlipidemia, unspecified; M79.642 Pain in left hand; E86.1 Hypovolemia; E87.70 Fluid overload, unspecified; Y83.2 Surgical operation with anastomosis, bypass or graft as the cause of abnormal reaction of the patient, or of later complication, without mention of misadventure at the time of the procedure; I49.1 Atrial premature depolarization; G47.33 Obstructive sleep apnea (adult) (pediatric); E66.01 Morbid (severe) obesity due to excess calories; E10.9 Type 1 diabetes mellitus without complications; E03.9 Hypothyroidism, unspecified; M10.9 Gout, unspecified; D22.5 Melanocytic nevi of trunk; R94.31 Abnormal electrocardiogram [ECG] [EKG]; F17.290 Nicotine dependence, other tobacco product, uncomplicated; Z68.33 Body mass index [BMI] 33.0-33.9, adult; Z79.4 Long term (current) use of insulin; Z79.82 Long term (current) use of aspirin; Z82.49 Family history of ischemic heart disease and other diseases of the circulatory system
CPT/HCPCS: 88304; 36415; 71045; 80048; 80053; 80061; 81003; 81015; 82248; 82330; 82565; 82805; 82810; 82947; 82962; 83036; 83735; 84132; 84302; 84520; 85014; 85018; 85025; 85027; 85049; 85610; 85730; 86803; 86850; 86900; 86901; 86920; 87070; 93005; 93312; 93320; 93325; 93880; 93923; 93930; 94002; J2916; P9047